=== PATIENT | female | born 1950 | race Hispanic/Latino ===

== ENCOUNTER 2023-08-19 14:40 | Inpatient (IN) | payer MEDICARE ==
[~2023-08-19] VITALS: Ht 170.2 cm; Wt 60.7 kg
[2023-08-19 15:29] LABS: BASOPHILS # (AUTO) 0.04 K/uL (0.00-0.20); BASOPHILS % (AUTO) 0.5 % (0.0-5.0); EOSINOPHILS # (AUTO) 0.11 K/uL (0.00-0.70); EOSINOPHILS % (AUTO) 1.3 % (0.0-8.0); HEMATOCRIT 36.5 % (36-48); IMMATURE GRANULOCYTE ABSOLUTE 0.04 K/uL (0-1); LYMPHOCYTES # (AUTO) 1.3 K/uL (1.0-4.8); LYMPHOCYTES % (AUTO) 15.3 % (21.0-51.0); MEAN CORPUSCULAR HEMOGLOBIN 30.1 pg (27.0-33.0); MEAN CORPUSCULAR HGB CONC 32.6 g/dL (32.0-36.0); MEAN CORPUSCULAR VOLUME 92.4 fL (79-99); MONOCYTES # (AUTO) 0.4 K/uL (0.1-1.0); MONOCYTES % (AUTO) 4.8 % (3.0-13.0); NEUTROPHILS # (AUTO) 6.6 K/uL (1.8-7.7); NEUTROPHILS % (AUTO) 77.6 % (40.0-77.0); PLATELET COUNT (AUTO) 293 K/uL (130-400); RED BLOOD CELL COUNT(AUTO) 3.95 MIL/uL (4.00-5.50); RED CELL DISTRIBUTION WIDTH 12.9 % (11.0-15.5); WHITE BLOOD COUNT (AUTO) 8.5 K/uL (4.8-10.8)
[2023-08-19 15:48] LABS: CREATININE 1.1 mg/dL (0.5-1.5); POTASSIUM 3.5 mmol/L (3.5-5.1)
[2023-08-19 15:53] LABS: ALBUMIN 3.2 g/dL (3.5-5.0); BILIRUBIN,TOTAL 0.3 mg/dL (0.2-1.0); MAGNESIUM 1.8 mg/dL (1.80-2.40); TOTAL PROTEIN, SERUM 7.5 g/dL (6.0-8.3)
[2023-08-19 15:58] LABS: B-TYPE NATRIURETIC PEPTIDE 183 pg/mL (0-100)
[2023-08-19] MEDS ORDERED: ONDANSETRON 4MG INJ IVP PRN (17:00)
[2023-08-19] MEDS ORDERED: LACTULOSE 20 GM/30 ML UDCUP PO PRN (17:00)
[2023-08-19] MEDS ORDERED: CLONIDINE HCL 0.1 MG TABLET PO PRN (17:00)
[2023-08-19 17:06] LABS: ABG BASE EXCESS 0.5 mmol/L (-2.0-3.0); ABG HCO3 24.8 mmol/L (21.0-28.0); ABG PCO2 39 mmHg (32-45); ABG PH 7.424 (7.35-7.450); PO2, ARTERIAL BG 79.6 mmHg (83.0-108.0); VENT MODE, BG RA (ROOM AIR)
[2023-08-19] MEDS ORDERED: IOHEXOL 350 MG/ML 100ML INFUS..BTL IV ONE (18:17)
[2023-08-19] MEDS: 0.9%NACL 1000ML 1,000 ML IV SCH (18:41)
[2023-08-19] MEDS: CEFTRIAXONE 2GM VIAL IVPB SCH (18:41)
[2023-08-19] MEDS ORDERED: CLOPIDOGREL 300MG TAB PO ONE (20:00)
[2023-08-19] MEDS: INSULIN HUMULIN R 100 UNIT/ML 3ML SQ SCH (21:00)
[2023-08-19] MEDS: SIMVASTATIN 20 MG TABLET PO SCH (21:00)
[2023-08-19] MEDS ORDERED: ASPIRIN 81MG CHEW TAB PO STA (23:25)
[2023-08-19] MEDS ORDERED: HEPARIN 5,000 UNIT VIAL ONE (23:45)
[2023-08-20] VITALS (12 sets, daily range): BP systolic 124–186; BP diastolic 58–78; PULSE 46–60; RESP 18–20; O2SAT 97–98
[2023-08-20 00:20] LABS: INR 0.94 (0.85-1.15); PROTHROMBIN TIME 10.9 SEC (9.6-11.6)
[2023-08-20 00:21] LABS: PARTIAL THROMBOPLASTIN TIME 25.1 SEC (26.3-35.5)
[2023-08-20] MEDS: HEPARIN 25,000 UNITS/250ML D5W 250 ML IV SCH (00:29)
[2023-08-20 00:35] LABS: ADD UA MICROSCOPIC NO; APPEARANCE,URINE CLEAR (CLEAR); BILIRUBIN,URINE NEGATIVE (NEGATIVE); COLOR,URINE COLORLESS (YELLOW); GLUCOSE, URINE (UA) NEGATIVE (NEGATIVE); KETONES,URINE NEGATIVE (NEGATIVE); LEUKOCYTE ESTERASE ,URINE NEGATIVE Leu/uL (NEGATIVE); NITRATE,URINE NEGATIVE (NEGATIVE); OCCULT BLOOD,URINE NEGATIVE (NEGATIVE); PH,URINE 6.5 (5.0-8.0); PROTEIN,URINE NEGATIVE (NEGATIVE); UROBILINOGEN,URINE 0.2 mg/dL (0.2-1.0)
[2023-08-20] MEDS ORDERED: LEVO5TAB29 PO (01:21)
[2023-08-20] MEDS ORDERED: PRAV40TA3 PO (01:22)
[2023-08-20] MEDS ORDERED: HYDRALAZINE 20MG/ML VIAL IV PRN (01:30)
[2023-08-20 03:23] LABS: INR 0.98 (0.85-1.15); PROTHROMBIN TIME 11.4 SEC (9.6-11.6)
[2023-08-20 03:47] LABS: PARTIAL THROMBOPLASTIN TIME > 139.0 SEC (26.3-35.5)
[2023-08-20 04:58] LABS: CREATININE 0.9 mg/dL (0.5-1.5); MAGNESIUM 1.7 mg/dL (1.80-2.40); POTASSIUM 3.4 mmol/L (3.5-5.1)
[2023-08-20 05:56] LABS: BASOPHILS # (AUTO) 0.04 K/uL (0.00-0.20); BASOPHILS % (AUTO) 0.6 % (0.0-5.0); EOSINOPHILS # (AUTO) 0.11 K/uL (0.00-0.70); EOSINOPHILS % (AUTO) 1.6 % (0.0-8.0); HEMATOCRIT 33.9 % (36-48); IMMATURE GRANULOCYTE ABSOLUTE 0.02 K/uL (0-1); LYMPHOCYTES # (AUTO) 2.7 K/uL (1.0-4.8); LYMPHOCYTES % (AUTO) 38.1 % (21.0-51.0); MEAN CORPUSCULAR HEMOGLOBIN 30.7 pg (27.0-33.0); MEAN CORPUSCULAR VOLUME 92.9 fL (79-99); MONOCYTES # (AUTO) 0.6 K/uL (0.1-1.0); MONOCYTES % (AUTO) 8.4 % (3.0-13.0); NEUTROPHILS # (AUTO) 3.6 K/uL (1.8-7.7); PLATELET COUNT (AUTO) 295 K/uL (130-400); RED BLOOD CELL COUNT(AUTO) 3.65 MIL/uL (4.00-5.50); RED CELL DISTRIBUTION WIDTH 13.2 % (11.0-15.5)
[2023-08-20] MEDS ORDERED: POTASSIUM CHLORIDE 10% ELIXIR 20 MEQ/15 ML UDCUP PO PRN (06:00)
[2023-08-20] MEDS ORDERED: KCL 20 MEQ ERTAB PO PRN (06:00)
[2023-08-20] MEDS ORDERED: POTASSIUM CHLORIDE 20MEQ/100ML 100 ML IV PRN (06:00)
[2023-08-20] MEDS ORDERED: MAGNESIUM 2GM PREMIX 50ML 50 ML IV PRN (06:00)
[2023-08-20 06:18] LABS: B-TYPE NATRIURETIC PEPTIDE 223 pg/mL (0-100)
[2023-08-20] MEDS: INSULIN HUMULIN R 100 UNIT/ML 3ML SQ SCH ×4 (06:19→21:00)
[2023-08-20] MEDS ORDERED: REGADENOSON 0.4 MG/5 ML PF SYG IVP ONE (06:30)
[2023-08-20] MEDS ORDERED: LOSARTAN 25 MG TABLET PO SCH (09:00)
[2023-08-20] MEDS ORDERED: ENOXAPARIN SODIUM 40 MG/0.4 ML SYRINGE SQ SCH (09:00)
[2023-08-20 10:09] LABS: INR 0.96 (0.85-1.15); PROTHROMBIN TIME 11.2 SEC (9.6-11.6)
[2023-08-20 10:30] LABS: PARTIAL THROMBOPLASTIN TIME > 139.0 SEC (26.3-35.5)
[2023-08-20] MEDS: PANTOPRAZOLE 40 MG TAB DR PO SCH (10:41)
[2023-08-20] MEDS: ASPIRIN 81MG CHEW TAB PO SCH (10:41)
[2023-08-20] MEDS: CLOPIDOGREL 75MG TAB PO SCH (10:41)
[2023-08-20] MEDS: 0.9%NACL 1000ML 1,000 ML IV SCH ×2 (10:45→19:40)
[2023-08-20] MEDS: CEFTRIAXONE 2GM VIAL IVPB SCH (17:32)
[2023-08-20] MEDS: SIMVASTATIN 20 MG TABLET PO SCH (21:09)
[2023-08-21] VITALS (12 sets, daily range): BP systolic 107–154; BP diastolic 51–79; PULSE 50–89; RESP 18; O2SAT 98
[2023-08-21 01:14] LABS: INR 0.97 (0.85-1.15); PROTHROMBIN TIME 11.3 SEC (9.6-11.6)
[2023-08-21 01:49] LABS: PARTIAL THROMBOPLASTIN TIME 103.2 SEC (26.3-35.5)
[2023-08-21] MEDS: INSULIN HUMULIN R 100 UNIT/ML 3ML SQ SCH ×4 (05:55→21:00)
[2023-08-21 07:19] LABS: INR 0.96 (0.85-1.15); PROTHROMBIN TIME 11.2 SEC (9.6-11.6)
[2023-08-21 07:21] LABS: PARTIAL THROMBOPLASTIN TIME 75.2 SEC (26.3-35.5)
[2023-08-21 07:29] LABS: BASOPHILS # (AUTO) 0.05 K/uL (0.00-0.20); EOSINOPHILS # (AUTO) 0.11 K/uL (0.00-0.70); EOSINOPHILS % (AUTO) 2.2 % (0.0-8.0); HEMATOCRIT 33.1 % (36-48); IMMATURE GRANULOCYTE ABSOLUTE 0.03 K/uL (0-1); LYMPHOCYTES # (AUTO) 2.3 K/uL (1.0-4.8); LYMPHOCYTES % (AUTO) 46.2 % (21.0-51.0); MEAN CORPUSCULAR HEMOGLOBIN 30.4 pg (27.0-33.0); MEAN CORPUSCULAR HGB CONC 32.9 g/dL (32.0-36.0); MEAN CORPUSCULAR VOLUME 92.5 fL (79-99); MONOCYTES # (AUTO) 0.4 K/uL (0.1-1.0); MONOCYTES % (AUTO) 7.7 % (3.0-13.0); NEUTROPHILS # (AUTO) 2.1 K/uL (1.8-7.7); NEUTROPHILS % (AUTO) 42.3 % (40.0-77.0); PLATELET COUNT (AUTO) 252 K/uL (130-400); RED BLOOD CELL COUNT(AUTO) 3.58 MIL/uL (4.00-5.50); RED CELL DISTRIBUTION WIDTH 13.4 % (11.0-15.5); WHITE BLOOD COUNT (AUTO) 4.9 K/uL (4.8-10.8)
[2023-08-21 07:46] LABS: CREATININE 0.8 mg/dL (0.5-1.5); POTASSIUM 3.7 mmol/L (3.5-5.1)
[2023-08-21 07:47] LABS: B-TYPE NATRIURETIC PEPTIDE 135 pg/mL (0-100)
[2023-08-21] MEDS: PANTOPRAZOLE 40 MG TAB DR PO SCH (09:30)
[2023-08-21] MEDS: ASPIRIN 81MG CHEW TAB PO SCH (09:30)
[2023-08-21] MEDS: LOSARTAN 25 MG TABLET PO SCH (09:30)
[2023-08-21] MEDS: 0.9%NACL 1000ML 1,000 ML IV SCH ×2 (09:31→16:09)
[2023-08-21] MEDS: CLOPIDOGREL 75MG TAB PO SCH (09:31)
[2023-08-21] MEDS ORDERED: IOHEXOL-350 50ML VIAL IV ONE (14:30)
[2023-08-21] MEDS ORDERED: LIDOCAINE HCL 400MG/20ML VIAL ONE (14:30)
[2023-08-21] MEDS ORDERED: BIVALIRUDIN 250 MG/VIAL IV ONE (14:30)
[2023-08-21] MEDS ORDERED: HEPARIN 10,000 UNIT/10ML (1,000 UNIT/ML) VIAL ONE (14:30)
[2023-08-21] MEDS ORDERED: MIDAZOLAM HCL 1 MG/ML 2ML VIAL ONE (14:30)
[2023-08-21] MEDS ORDERED: IOHEXOL 350 MG/ML 100ML INFUS..BTL IV ONE (14:30)
[2023-08-21] MEDS ORDERED: FENTANYL CITRATE PF 50 MCG/1 ML 2ML VIAL ONE (14:30)
[2023-08-21] MEDS ORDERED: HYDRALAZINE 20MG/ML VIAL ONE ×2 (15:39→15:59)
[2023-08-21] MEDS ORDERED: LABETALOL 20MG SYG IV ONE (15:57)
[2023-08-21] MEDS ORDERED: 0.9%NACL 1000ML 1,000 ML IV SCH (16:30)
[2023-08-21] MEDS ORDERED: PHARMACY COMMUNICATION MISC SCH ×2 (16:30→18:00)
[2023-08-21] MEDS: CEFTRIAXONE 2GM VIAL IVPB SCH (18:17)
[2023-08-21] MEDS: SIMVASTATIN 20 MG TABLET PO SCH (21:25)
[2023-08-22] VITALS (8 sets, daily range): BP systolic 127–167; BP diastolic 65–77; PULSE 68–79; RESP 16–20; O2SAT 98
[2023-08-22] MEDS ORDERED: HEPARIN 5,000 UNIT VIAL ONE (01:21)
[2023-08-22] MEDS: HEPARIN 25,000 UNITS/250ML D5W 250 ML IV SCH (01:54)
[2023-08-22] MEDS ORDERED: HEPARIN 5,000 UNIT VIAL SQ PRN (02:30)
[2023-08-22 03:59] LABS: HEMATOCRIT 31.5 % (36-48); MEAN CORPUSCULAR HEMOGLOBIN 30.3 pg (27.0-33.0); MEAN CORPUSCULAR HGB CONC 33.3 g/dL (32.0-36.0); RED BLOOD CELL COUNT(AUTO) 3.46 MIL/uL (4.00-5.50); RED CELL DISTRIBUTION WIDTH 13.5 % (11.0-15.5); WHITE BLOOD COUNT (AUTO) 7.4 K/uL (4.8-10.8)
[2023-08-22 04:07] LABS: CREATININE 0.9 mg/dL (0.5-1.5); MAGNESIUM 1.4 mg/dL (1.80-2.40); POTASSIUM 3.3 mmol/L (3.5-5.1)
[2023-08-22 06:28] LABS: BASOPHILS # (AUTO) 0.02 K/uL (0.00-0.20); BASOPHILS % (AUTO) 0.3 % (0.0-5.0); HEMATOCRIT 31.8 % (36-48); IMMATURE GRANULOCYTE ABSOLUTE 0.04 K/uL (0-1); LYMPHOCYTES # (AUTO) 1.4 K/uL (1.0-4.8); LYMPHOCYTES % (AUTO) 17.7 % (21.0-51.0); MEAN CORPUSCULAR HEMOGLOBIN 30.5 pg (27.0-33.0); MEAN CORPUSCULAR HGB CONC 34.3 g/dL (32.0-36.0); MEAN CORPUSCULAR VOLUME 89.1 fL (79-99); MONOCYTES # (AUTO) 0.6 K/uL (0.1-1.0); MONOCYTES % (AUTO) 7.2 % (3.0-13.0); NEUTROPHILS # (AUTO) 5.7 K/uL (1.8-7.7); NEUTROPHILS % (AUTO) 74.3 % (40.0-77.0); PLATELET COUNT (AUTO) 243 K/uL (130-400); RED BLOOD CELL COUNT(AUTO) 3.57 MIL/uL (4.00-5.50); RED CELL DISTRIBUTION WIDTH 13.6 % (11.0-15.5); WHITE BLOOD COUNT (AUTO) 7.7 K/uL (4.8-10.8)
[2023-08-22 06:39] LABS: CREATININE 0.9 mg/dL (0.5-1.5); POTASSIUM 3.2 mmol/L (3.5-5.1)
[2023-08-22] MEDS: INSULIN HUMULIN R 100 UNIT/ML 3ML SQ SCH ×4 (06:52→21:00)
[2023-08-22] MEDS: PANTOPRAZOLE 40 MG TAB DR PO SCH (08:23)
[2023-08-22] MEDS: ASPIRIN 81MG CHEW TAB PO SCH (08:24)
[2023-08-22] MEDS: LOSARTAN 25 MG TABLET PO SCH (08:24)
[2023-08-22 10:14] LABS: % IRON SATURATION 30.4 % (22-44)
[2023-08-22] MEDS: CEFTRIAXONE 2GM VIAL IVPB SCH (16:50)
[2023-08-22] MEDS: SIMVASTATIN 20 MG TABLET PO SCH (21:20)
[2023-08-23] VITALS (9 sets, daily range): BP systolic 132–169; BP diastolic 66–87; PULSE 61–91; RESP 18–20; O2SAT 97–98
[2023-08-23] MEDS: INSULIN HUMULIN R 100 UNIT/ML 3ML SQ SCH ×4 (06:54→20:10)
[2023-08-23] MEDS ORDERED: PHARMACY COMMUNICATION MISC SCH (08:00)
[2023-08-23] MEDS ORDERED: HEPARIN 25000 UNITS/D5W 250ML IV SCH (08:00)
[2023-08-23] MEDS: LOSARTAN 25 MG TABLET PO SCH (08:45)
[2023-08-23] MEDS: ASPIRIN 81MG CHEW TAB PO SCH (08:45)
[2023-08-23] MEDS: PANTOPRAZOLE 40 MG TAB DR PO SCH (08:45)
[2023-08-23] MEDS ORDERED: HEPARIN 10,000 UNIT/10ML (1,000 UNIT/ML) VIAL IV PRN (09:30)
[2023-08-23] MEDS: CEFAZOLIN SODIUM 1 GM VIAL IVPB SCH (10:30)
[2023-08-23] MEDS: CEFTRIAXONE 2GM VIAL IVPB SCH (17:58)
[2023-08-23] MEDS: SIMVASTATIN 20 MG TABLET PO SCH (20:24)
[2023-08-23] MEDS: METOPROLOL TARTRATE 25 MG TAB PO SCH (20:25)
[2023-08-24] VITALS (38 sets, daily range): BP systolic 93–206; BP diastolic 33–96; PULSE 60–109; RESP 4–21; TEMP 97.2–98.6; O2SAT 98–100
[2023-08-24 04:00] LABS: HEMATOCRIT 36.1 % (36-48); MEAN CORPUSCULAR HEMOGLOBIN 30.3 pg (27.0-33.0); MEAN CORPUSCULAR HGB CONC 32.7 g/dL (32.0-36.0); MEAN CORPUSCULAR VOLUME 92.8 fL (79-99); RED BLOOD CELL COUNT(AUTO) 3.89 MIL/uL (4.00-5.50); RED CELL DISTRIBUTION WIDTH 13.8 % (11.0-15.5); WHITE BLOOD COUNT (AUTO) 8.4 K/uL (4.8-10.8)
[2023-08-24 04:09] LABS: POTASSIUM 3.7 mmol/L (3.5-5.1)
[2023-08-24 04:12] LABS: INR 0.96 (0.85-1.15); PROTHROMBIN TIME 11.2 SEC (9.6-11.6)
[2023-08-24 04:13] LABS: ALBUMIN 3.2 g/dL (3.5-5.0); BILIRUBIN,TOTAL 0.4 mg/dL (0.2-1.0); TOTAL PROTEIN, SERUM 7.6 g/dL (6.0-8.3)
[2023-08-24 04:14] LABS: PARTIAL THROMBOPLASTIN TIME 68.6 SEC (26.3-35.5)
[2023-08-24 04:24] LABS: HEMOGLOBIN A1C 6.8 % (4.0-6.0)
[2023-08-24] MEDS: INSULIN HUMULIN R 100 UNIT/ML 3ML SQ SCH ×2 (05:25→11:30)
[2023-08-24] MEDS: ASPIRIN 81MG CHEW TAB PO SCH (09:00)
[2023-08-24] MEDS ORDERED: AMINOCAPROIC ACID 5,000MG VIAL 15,000 MG in 0.9% NACL 500ML IV.SOLN 420 ML IV PRN (09:30)
[2023-08-24] MEDS ORDERED: EPINEPHRINE PF 1MG (1:1,000) 10 MG in 0.9% NACL 250ML 240 ML IV PRN ×2 (09:30→13:30)
[2023-08-24] MEDS ORDERED: NOREPINEPHRINE BITARTRATE 8 MG in DEXTROSE 5%-WATER 250 ML IV PRN ×2 (09:30→13:30)
[2023-08-24] MEDS: PANTOPRAZOLE 40 MG TAB DR PO SCH (09:59)
[2023-08-24] MEDS: METOPROLOL TARTRATE 25 MG TAB PO SCH (10:00)
[2023-08-24] MEDS: CEFAZOLIN SODIUM 1 GM VIAL IVPB SCH ×2 (10:30→12:25)
[2023-08-24] MEDS ORDERED: CEFAZOLIN SODIUM 1 GM VIAL ONE (11:04)
[2023-08-24] MEDS ORDERED: PAPAVERINE HCL 30 MG/ML 2ML VIAL ONE (11:05)
[2023-08-24] MEDS ORDERED: LIDOCAINE 2G/250ML 250 ML IV ONE (11:31)
[2023-08-24] MEDS ORDERED: CEFAZOLIN SODIUM 2 GM VIAL ONE (11:52)
[2023-08-24] MEDS ORDERED: NITROGLYCERIN 50MG/D5W 250ML 1 BOT ONE (12:02)
[2023-08-24] MEDS ORDERED: SODIUM BICARB 50MEQ 50ML VIAL 150 ML ONE (12:23)
[2023-08-24] MEDS ORDERED: HEPARIN 10,000 UNIT/10ML (1,000 UNIT/ML) VIAL ONE ×2 (12:23→17:24)
[2023-08-24] MEDS ORDERED: EPINEPHRINE PF 1MG (1:1,000) 1 MG/ML AMP ONE (12:23)
[2023-08-24] MEDS ORDERED: ESMOLOL HCL 10 MG/ML 10 ML VIAL ONE (12:23)
[2023-08-24] MEDS ORDERED: PROTAMINE SULFATE 10 MG/ML 25ML VIAL IV ONE (12:23)
[2023-08-24] MEDS ORDERED: LIDOCAINE PF 100MG/5ML (2%) SYRINGE 5ML ONE ×2 (12:23→13:37)
[2023-08-24] MEDS ORDERED: NOREPINEPHRINE BITARTRATE 1 MG/1 ML ML IV ONE (12:23)
[2023-08-24] MEDS ORDERED: AMINOCAPROIC ACID 5,000MG VIAL ONE (12:23)
[2023-08-24] MEDS ORDERED: FENTANYL CITRATE PF 50 MCG/1 ML 20ML VIAL IJ ONE (12:24)
[2023-08-24] MEDS ORDERED: PROPOFOL 10 MG/ML 20ML VIAL IV ONE (12:24)
[2023-08-24] MEDS ORDERED: MIDAZOLAM HCL 1 MG/ML 2ML VIAL ONE (12:24)
[2023-08-24] MEDS ORDERED: ROCURONIUM 10MG/1ML SYR 10 MG/ML ML ONE (12:24)
[2023-08-24] MEDS ORDERED: ETOMIDATE 20MG VIAL ONE (12:25)
[2023-08-24 12:56] LABS: ABG BASE EXCESS -2.9 mmol/L (-2.0-3.0); ABG HCO3 20.2 mmol/L (21.0-28.0); ABG OXYGEN SATURATION 99.3 % (95.0-99.0); ABG PCO2 30 mmHg (32-45); ABG PH 7.447 (7.35-7.450); CARBON MONOXIDE 0.2; DEVICE COMMENT 1; HHb 0.7; PO2, ARTERIAL BG 466.5 mmHg (83.0-108.0)
[2023-08-24] MEDS ORDERED: AMIODARONE 150MG VIAL ONE (13:29)
[2023-08-24] MEDS ORDERED: DEXTROSE 50%-WATER 50 ML DISP.SYRIN IV PRN (13:30)
[2023-08-24] MEDS ORDERED: POTASSIUM PHOS 15 mMOL+NS250ML 250 ML IV PRN (13:30)
[2023-08-24] MEDS ORDERED: 0.9%NACL 1000ML 1,000 ML IV SCH (13:30)
[2023-08-24] MEDS ORDERED: PROPOFOL 1000 MG/100 ML 100 ML IV PRN (13:30)
[2023-08-24] MEDS ORDERED: ALBUMIN (HUMAN) 5% 250 ML IV PRN (13:30)
[2023-08-24] MEDS ORDERED: ACETAMINOPHEN 650 MG SUPPOSITORY RC PRN (13:30)
[2023-08-24] MEDS ORDERED: AMINOCAPROIC ACID 5,000MG VIAL 15,000 MG in 0.9% NACL 250ML 250 ML IV SCH (13:30)
[2023-08-24] MEDS ORDERED: NITROGLYCERIN 50MG/D5W 250ML 250 BOT IV SCH (13:30)
[2023-08-24] MEDS ORDERED: GLUCAGON 1MG KIT 1 MG ML IM PRN (13:30)
[2023-08-24] MEDS ORDERED: 0.9%NACL 10ML VIAL IVP PRN (13:30)
[2023-08-24] MEDS ORDERED: MAGNESIUM HYDROXIDE 30 ML/UDCUP PO PRN (13:30)
[2023-08-24] MEDS ORDERED: SODIUM BICARB 50MEQ 50ML VIAL IV PRN (13:30)
[2023-08-24] MEDS ORDERED: ACETAMINOPHEN 325 MG TAB PO PRN ×2 (13:30)
[2023-08-24] MEDS ORDERED: INSULIN REGULAR, HUMAN 3ML 100 UNIT in 0.9%NACL 100ML 99 ML IV SCH ×2 (13:30)
[2023-08-24] MEDS ORDERED: ONDANSETRON 4MG INJ IV PRN (13:30)
[2023-08-24] MEDS ORDERED: MORPHINE 2 MG SYG IV PRN ×2 (13:30)
[2023-08-24] MEDS ORDERED: 0.9% NACL 500ML IV.SOLN 500 ML IV SCH (13:30)
[2023-08-24] MEDS ORDERED: VASOPRESSIN 20 UNITS/ML 1ML VIAL ONE (13:33)
[2023-08-24] MEDS ORDERED: METOPROLOL TARTRATE 1 MG/ML 5ML VIAL IV ONE (13:38)
[2023-08-24 13:47] LABS: ABG BASE EXCESS 3.4 mmol/L (-2.0-3.0); ABG HCO3 26.6 mmol/L (21.0-28.0); ABG OXYGEN SATURATION 99.4 % (95.0-99.0); ABG PCO2 35 mmHg (32-45); ABG PH 7.496 (7.35-7.450); CARBON MONOXIDE 0.2; DEVICE COMMENT 2; HHb 0.6; PO2, ARTERIAL BG > 500.0 mmHg (83.0-108.0)
[2023-08-24] MEDS ORDERED: POTASSIUM CHLORIDE 20MEQ/100ML 300 ML IV ONE (13:51)
[2023-08-24] MEDS ORDERED: ATROPINE 0.4MG VIAL IJ ONE (13:57)
[2023-08-24 14:28] LABS: ABG BASE EXCESS -0.3 mmol/L (-2.0-3.0); ABG HCO3 21.4 mmol/L (21.0-28.0); ABG OXYGEN SATURATION 99.2 % (95.0-99.0); ABG PCO2 25 mmHg (32-45); ABG PH 7.554 (7.35-7.450); CARBON MONOXIDE 0.2; DEVICE COMMENT 3; HHb 0.8; PO2, ARTERIAL BG > 500.0 mmHg (83.0-108.0)
[2023-08-24] MEDS ORDERED: ALBUMIN (HUMAN) 5% 500 ML IV ONE (14:37)
[2023-08-24 15:12] LABS: ABG BASE EXCESS -5.6 mmol/L (-2.0-3.0); ABG HCO3 18.3 mmol/L (21.0-28.0); ABG OXYGEN SATURATION 99.3 % (95.0-99.0); ABG PCO2 29 mmHg (32-45); CARBON MONOXIDE 0.3; DEVICE COMMENT 4; HHb 0.7; PO2, ARTERIAL BG > 500.0 mmHg (83.0-108.0)
[2023-08-24 15:57] LABS: ABG BASE EXCESS 2.4 mmol/L (-2.0-3.0); ABG OXYGEN SATURATION 99.2 % (95.0-99.0); ABG PCO2 30 mmHg (32-45); ABG PH 7.542 (7.35-7.450); CARBON MONOXIDE 0.9; HHb 0.8; PO2, ARTERIAL BG 261.9 mmHg (83.0-108.0); VENT MODE, BG SIMV,PS10 (ROOM AIR)
[2023-08-24] MEDS ORDERED: ASPIRIN 81MG CHEW TAB NG ONE (16:00)
[2023-08-24 16:08] LABS: MEAN CORPUSCULAR HEMOGLOBIN 31.4 pg (27.0-33.0); MEAN CORPUSCULAR HGB CONC 33.7 g/dL (32.0-36.0); MEAN CORPUSCULAR VOLUME 93.1 fL (79-99); RED BLOOD CELL COUNT(AUTO) 2.04 MIL/uL (4.00-5.50); RED CELL DISTRIBUTION WIDTH 13.7 % (11.0-15.5); WHITE BLOOD COUNT (AUTO) 10.4 K/uL (4.8-10.8)
[2023-08-24 16:29] LABS: CREATININE 0.8 mg/dL (0.5-1.5); MAGNESIUM 1.2 mg/dL (1.80-2.40); PHOSPHORUS 3.9 mg/dL (2.5-4.9); POTASSIUM 3.5 mmol/L (3.5-5.1)
[2023-08-24 16:30] LABS: INR 1.35 (0.85-1.15); PROTHROMBIN TIME 15.4 SEC (9.6-11.6)
[2023-08-24 16:31] LABS: PARTIAL THROMBOPLASTIN TIME 30.2 SEC (26.3-35.5)
[2023-08-24] MEDS: MAGNESIUM 2GM PREMIX 50ML 50 ML IV PRN (16:47)
[2023-08-24] MEDS: POTASSIUM CHLORIDE 20MEQ/100ML 100 ML IV PRN ×5 (16:47→22:32)
[2023-08-24 16:58] LABS: ABG BASE EXCESS -0.9 mmol/L (-2.0-3.0); ABG HCO3 20.9 mmol/L (21.0-28.0); ABG OXYGEN SATURATION 98.7 % (95.0-99.0); ABG PCO2 26 mmHg (32-45); ABG PH 7.531 (7.35-7.450); CARBON MONOXIDE 0.3; HHb 1.3; VENT MODE, BG SIMV,PS10 (ROOM AIR)
[2023-08-24] MEDS: CEFTRIAXONE 2GM VIAL IVPB SCH (17:20)
[2023-08-24 18:23] LABS: ABG OXYGEN SATURATION 98.6 % (95.0-99.0); ABG PCO2 27 mmHg (32-45); ABG PH 7.543 (7.35-7.450); CARBON MONOXIDE 0; HHb 1.4; VENT MODE, BG SIMV-PS 10 (ROOM AIR)
[2023-08-24 19:37] LABS: ABG BASE EXCESS -1.5 mmol/L (-2.0-3.0); ABG HCO3 22.6 mmol/L (21.0-28.0); ABG OXYGEN SATURATION 98.3 % (95.0-99.0); ABG PCO2 35 mmHg (32-45); ABG PH 7.423 (7.35-7.450); CARBON MONOXIDE 0.3; HHb 1.7; PO2, ARTERIAL BG 156.3 mmHg (83.0-108.0); VENT MODE, BG SIMV-VC PS 10 (ROOM AIR)
[2023-08-24] MEDS: CEFAZOLIN SODIUM 2 GM VIAL IVPB SCH (20:08)
[2023-08-24 21:01] LABS: ABG BASE EXCESS 3.3 mmol/L (-2.0-3.0); ABG HCO3 26.8 mmol/L (21.0-28.0); ABG PCO2 36 mmHg (32-45); ABG PH 7.488 (7.35-7.450); CARBON MONOXIDE 0.3; VENT MODE, BG SIMV PS 10 (ROOM AIR)
[2023-08-24] MEDS: DOCUSATE SODIUM 100 MG CAP PO SCH (21:13)
[2023-08-24] MEDS: FAMOTIDINE 20MG VIAL IV SCH (21:14)
[2023-08-24] MEDS: CALCIUM GLUC 1GM 1 GM in 0.9%NACL 50ML 50 ML IV PRN ×2 (21:14→22:32)
[2023-08-24] MEDS: SIMVASTATIN 20 MG TABLET PO SCH (21:14)
[2023-08-24 22:23] LABS: ABG BASE EXCESS 4.7 mmol/L (-2.0-3.0); ABG HCO3 28.3 mmol/L (21.0-28.0); ABG OXYGEN SATURATION 98.2 % (95.0-99.0); ABG PCO2 38 mmHg (32-45); ABG PH 7.491 (7.35-7.450); CARBON MONOXIDE 0.1; HHb 1.8; PO2, ARTERIAL BG 140.3 mmHg (83.0-108.0)
[2023-08-24 23:26] LABS: ABG BASE EXCESS 4.6 mmol/L (-2.0-3.0); ABG HCO3 29.2 mmol/L (21.0-28.0); ABG OXYGEN SATURATION 98.2 % (95.0-99.0); ABG PCO2 44 mmHg (32-45); CARBON MONOXIDE 0.1; CPAP, BG 10 cm H2O; HHb 1.8; PO2, ARTERIAL BG 137.7 mmHg (83.0-108.0); VENT MODE, BG CPAP PS10 (ROOM AIR)
[2023-08-25] VITALS (93 sets, daily range): BP systolic 76–206; BP diastolic 36–69; PULSE 83–114; RESP 8–30; TEMP 98.1–99; O2SAT 97–100
[2023-08-25 00:20] LABS: ABG BASE EXCESS 3.1 mmol/L (-2.0-3.0); ABG HCO3 27.3 mmol/L (21.0-28.0); ABG OXYGEN SATURATION 98.1 % (95.0-99.0); ABG PCO2 40 mmHg (32-45); ABG PH 7.448 (7.35-7.450); CARBON MONOXIDE 0.3; HHb 1.9; PO2, ARTERIAL BG 137.4 mmHg (83.0-108.0)
[2023-08-25] MEDS: POTASSIUM CHLORIDE 20MEQ/100ML 100 ML IV PRN (00:23)
[2023-08-25 01:31] LABS: ABG BASE EXCESS 3.2 mmol/L (-2.0-3.0); ABG HCO3 26.9 mmol/L (21.0-28.0); ABG OXYGEN SATURATION 98.3 % (95.0-99.0); ABG PCO2 38 mmHg (32-45); ABG PH 7.473 (7.35-7.450); CARBON MONOXIDE 0.8; HHb 1.7; PO2, ARTERIAL BG 139.8 mmHg (83.0-108.0)
[2023-08-25 02:27] LABS: ABG HCO3 25.2 mmol/L (21.0-28.0); ABG OXYGEN SATURATION 98.3 % (95.0-99.0); ABG PCO2 38 mmHg (32-45); ABG PH 7.437 (7.35-7.450); CARBON MONOXIDE 0.6; HHb 1.7
[2023-08-25 04:17] LABS: ABG BASE EXCESS 0.2 mmol/L (-2.0-3.0); ABG HCO3 24.9 mmol/L (21.0-28.0); ABG OXYGEN SATURATION 98.4 % (95.0-99.0); ABG PCO2 40 mmHg (32-45); ABG PH 7.409 (7.35-7.450); CARBON MONOXIDE 0.4; HHb 1.6; PO2, ARTERIAL BG 151.9 mmHg (83.0-108.0); VENT MODE, BG CAFM (ROOM AIR)
[2023-08-25 05:01] LABS: HEMATOCRIT 23.7 % (36-48); MEAN CORPUSCULAR HEMOGLOBIN 30.3 pg (27.0-33.0); MEAN CORPUSCULAR HGB CONC 32.5 g/dL (32.0-36.0); MEAN CORPUSCULAR VOLUME 93.3 fL (79-99); RED BLOOD CELL COUNT(AUTO) 2.54 MIL/uL (4.00-5.50); RED CELL DISTRIBUTION WIDTH 14.8 % (11.0-15.5); WHITE BLOOD COUNT (AUTO) 8.1 K/uL (4.8-10.8)
[2023-08-25] MEDS: CEFAZOLIN SODIUM 2 GM VIAL IVPB SCH ×2 (05:06→15:04)
[2023-08-25 05:14] LABS: INR 1.07 (0.85-1.15); PROTHROMBIN TIME 12.4 SEC (9.6-11.6)
[2023-08-25 05:15] LABS: PARTIAL THROMBOPLASTIN TIME 26.5 SEC (26.3-35.5)
[2023-08-25 05:24] LABS: ALBUMIN 2.6 g/dL (3.5-5.0); MAGNESIUM 1.5 mg/dL (1.80-2.40); PHOSPHORUS 3.1 mg/dL (2.5-4.9); POTASSIUM 4.3 mmol/L (3.5-5.1); TOTAL PROTEIN, SERUM 5.3 g/dL (6.0-8.3)
[2023-08-25] MEDS: MAGNESIUM 2GM PREMIX 50ML 50 ML IV PRN (05:46)
[2023-08-25] MEDS: TRAMADOL HCL 50 MG TABLET PO PRN ×2 (06:24→15:01)
[2023-08-25] MEDS: ASPIRIN 81MG CHEW TAB PO SCH (07:47)
[2023-08-25] MEDS: DOCUSATE SODIUM 100 MG CAP PO SCH ×2 (07:47→19:46)
[2023-08-25] MEDS: CEFTRIAXONE 2GM VIAL IVPB SCH (17:36)
[2023-08-25] MEDS: FAMOTIDINE 20MG VIAL IV SCH (19:46)
[2023-08-25] MEDS: SIMVASTATIN 20 MG TABLET PO SCH (19:46)
[2023-08-26] VITALS (43 sets, daily range): BP systolic 103–145; BP diastolic 48–73; PULSE 75–110; RESP 10–27; O2SAT 96–100
[2023-08-26 04:06] LABS: BASOPHILS # (AUTO) 0.02 K/uL (0.00-0.20); BASOPHILS % (AUTO) 0.2 % (0.0-5.0); HEMATOCRIT 23.1 % (36-48); IMMATURE GRANULOCYTE ABSOLUTE 0.08 K/uL (0-1); LYMPHOCYTES # (AUTO) 1.4 K/uL (1.0-4.8); LYMPHOCYTES % (AUTO) 12.3 % (21.0-51.0); MEAN CORPUSCULAR HEMOGLOBIN 30.5 pg (27.0-33.0); MEAN CORPUSCULAR HGB CONC 31.6 g/dL (32.0-36.0); MEAN CORPUSCULAR VOLUME 96.7 fL (79-99); MONOCYTES # (AUTO) 1.2 K/uL (0.1-1.0); MONOCYTES % (AUTO) 10.2 % (3.0-13.0); NEUTROPHILS # (AUTO) 8.9 K/uL (1.8-7.7); NEUTROPHILS % (AUTO) 76.6 % (40.0-77.0); PLATELET COUNT (AUTO) 180 K/uL (130-400); RED BLOOD CELL COUNT(AUTO) 2.39 MIL/uL (4.00-5.50); WHITE BLOOD COUNT (AUTO) 11.6 K/uL (4.8-10.8)
[2023-08-26 04:25] LABS: ALBUMIN 2.6 g/dL (3.5-5.0); BILIRUBIN,TOTAL 0.5 mg/dL (0.2-1.0); CREATININE 0.9 mg/dL (0.5-1.5); POTASSIUM 4.5 mmol/L (3.5-5.1); TOTAL PROTEIN, SERUM 5.9 g/dL (6.0-8.3)
[2023-08-26] MEDS: MAGNESIUM 2GM PREMIX 50ML 50 ML IV PRN (06:05)
[2023-08-26] MEDS: FUROSEMIDE 20 MG TABLET PO SCH ×2 (09:58→16:57)
[2023-08-26] MEDS: DOCUSATE SODIUM 100 MG CAP PO SCH ×2 (09:58→20:33)
[2023-08-26] MEDS: METOPROLOL TARTRATE 25 MG TAB PO SCH ×2 (09:58→20:33)
[2023-08-26] MEDS: ASPIRIN 81MG CHEW TAB PO SCH (09:58)
[2023-08-26] MEDS: TRAMADOL HCL 50 MG TABLET PO PRN (09:59)
[2023-08-26] MEDS: CEFTRIAXONE 2GM VIAL IVPB SCH (16:57)
[2023-08-26] MEDS: SIMVASTATIN 20 MG TABLET PO SCH (20:33)
[2023-08-26] MEDS: FAMOTIDINE 20MG VIAL IV SCH (20:33)
[2023-08-27] VITALS (14 sets, daily range): BP systolic 100–144; BP diastolic 47–77; PULSE 77–97; RESP 16–20; O2SAT 96
[2023-08-27 04:43] LABS: ALBUMIN 2.2 g/dL (3.5-5.0); BILIRUBIN,TOTAL 0.4 mg/dL (0.2-1.0); CREATININE 0.9 mg/dL (0.5-1.5); POTASSIUM 4.4 mmol/L (3.5-5.1); TOTAL PROTEIN, SERUM 5.6 g/dL (6.0-8.3)
[2023-08-27 05:34] LABS: HEMATOCRIT 21.4 % (36-48); MEAN CORPUSCULAR HEMOGLOBIN 30.4 pg (27.0-33.0); MEAN CORPUSCULAR HGB CONC 32.2 g/dL (32.0-36.0); MEAN CORPUSCULAR VOLUME 94.3 fL (79-99); RED BLOOD CELL COUNT(AUTO) 2.27 MIL/uL (4.00-5.50); RED CELL DISTRIBUTION WIDTH 14.3 % (11.0-15.5); WHITE BLOOD COUNT (AUTO) 11.8 K/uL (4.8-10.8)
[2023-08-27] MEDS: ASPIRIN 81MG CHEW TAB PO SCH (08:23)
[2023-08-27] MEDS: ENOXAPARIN SODIUM 30 MG/0.3 ML SQ SCH (08:24)
[2023-08-27] MEDS: DOCUSATE SODIUM 100 MG CAP PO SCH ×2 (08:24→20:45)
[2023-08-27] MEDS: METOPROLOL TARTRATE 25 MG TAB PO SCH ×2 (08:24→20:45)
[2023-08-27] MEDS: FUROSEMIDE 20 MG TABLET PO SCH ×2 (08:24→17:40)
[2023-08-27] MEDS: GUAIFENESIN 600 MG TABLET.ER PO SCH ×2 (13:34→20:45)
[2023-08-27] MEDS: TRAMADOL HCL 50 MG TABLET PO PRN (17:41)
[2023-08-27] MEDS: CEFTRIAXONE 2GM VIAL IVPB SCH (17:41)
[2023-08-27] MEDS: FAMOTIDINE 20MG VIAL IV SCH (20:44)
[2023-08-27] MEDS: SIMVASTATIN 20 MG TABLET PO SCH (20:45)
[2023-08-28] VITALS (7 sets, daily range): BP systolic 137–166; BP diastolic 72–94; PULSE 81–89; RESP 18–20; O2SAT 96
[2023-08-28 03:36] LABS: HEMATOCRIT 24.4 % (36-48); MEAN CORPUSCULAR HEMOGLOBIN 30.8 pg (27.0-33.0); MEAN CORPUSCULAR HGB CONC 32.8 g/dL (32.0-36.0); MEAN CORPUSCULAR VOLUME 93.8 fL (79-99); NUCLEATED RED BLOOD CELLS 0.5 % (0.0-0.19); RED BLOOD CELL COUNT(AUTO) 2.6 MIL/uL (4.00-5.50); RED CELL DISTRIBUTION WIDTH 13.7 % (11.0-15.5); WHITE BLOOD COUNT (AUTO) 8.1 K/uL (4.8-10.8)
[2023-08-28 03:52] LABS: ALBUMIN 2.1 g/dL (3.5-5.0); BILIRUBIN,TOTAL 0.6 mg/dL (0.2-1.0); CREATININE 0.8 mg/dL (0.5-1.5); MAGNESIUM 1.7 mg/dL (1.80-2.40); POTASSIUM 3.2 mmol/L (3.5-5.1); TOTAL PROTEIN, SERUM 5.3 g/dL (6.0-8.3)
[2023-08-28] MEDS: KCL 20 MEQ ERTAB PO ONE ×2 (05:52→05:56)
[2023-08-28] MEDS ORDERED: POTASSIUM CHLORIDE 10% ELIXIR 20 MEQ/15 ML UDCUP PO PRN (06:00)
[2023-08-28] MEDS: DOCUSATE SODIUM 100 MG CAP PO SCH ×2 (09:00→20:54)
[2023-08-28] MEDS: METOPROLOL TARTRATE 25 MG TAB PO SCH (10:08)
[2023-08-28] MEDS: CLOPIDOGREL 75MG TAB PO SCH (10:08)
[2023-08-28] MEDS: ASPIRIN 81MG CHEW TAB PO SCH (10:08)
[2023-08-28] MEDS: ENOXAPARIN SODIUM 30 MG/0.3 ML SQ SCH (10:09)
[2023-08-28] MEDS: GUAIFENESIN 600 MG TABLET.ER PO SCH ×3 (10:09→20:54)
[2023-08-28] MEDS: MAGNESIUM 2GM PREMIX 50ML 50 ML IV PRN (12:43)
[2023-08-28] MEDS: KCL 20 MEQ ERTAB PO PRN ×2 (13:00→15:10)
[2023-08-28] MEDS: CEFTRIAXONE 2GM VIAL IVPB SCH (17:14)
[2023-08-28] MEDS: SIMVASTATIN 20 MG TABLET PO SCH (20:54)
[2023-08-28] MEDS: FAMOTIDINE 20MG VIAL IV SCH (20:59)
[2023-08-28] MEDS ORDERED: METOPROLOL TARTRATE 25 MG TAB PO SCH (21:00)
[2023-08-29] VITALS (8 sets, daily range): BP systolic 143–168; BP diastolic 72–95; PULSE 87–99; RESP 16–22; O2SAT 94–96
[2023-08-29 04:26] LABS: HEMATOCRIT 28.5 % (36-48); MEAN CORPUSCULAR VOLUME 91.1 fL (79-99); NUCLEATED RED BLOOD CELLS 0.6 % (0.0-0.19); RED BLOOD CELL COUNT(AUTO) 3.13 MIL/uL (4.00-5.50); RED CELL DISTRIBUTION WIDTH 13.8 % (11.0-15.5); WHITE BLOOD COUNT (AUTO) 8.2 K/uL (4.8-10.8)
[2023-08-29 04:44] LABS: CREATININE 0.7 mg/dL (0.5-1.5); MAGNESIUM 1.8 mg/dL (1.80-2.40); POTASSIUM 3.6 mmol/L (3.5-5.1)
[2023-08-29] MEDS: MAGNESIUM 2GM PREMIX 50ML 50 ML IV PRN (05:28)
[2023-08-29] MEDS: KCL 20 MEQ ERTAB PO PRN (05:28)
[2023-08-29] MEDS ORDERED: LOSARTAN 25 MG TABLET PO SCH (09:00)
[2023-08-29] MEDS: DOCUSATE SODIUM 100 MG CAP PO SCH ×2 (09:00→21:00)
[2023-08-29] MEDS: GUAIFENESIN 600 MG TABLET.ER PO SCH ×3 (09:00→21:00)
[2023-08-29] MEDS ORDERED: LOSA25TA41 PO (09:03)
[2023-08-29] MEDS ORDERED: METO25TA3 PO (09:03)
[2023-08-29] MEDS ORDERED: CLOP-31 PO (09:03)
[2023-08-29] MEDS ORDERED: ASPI-1005 PO (09:03)
[2023-08-29] MEDS: CLOPIDOGREL 75MG TAB PO SCH (09:54)
[2023-08-29] MEDS: METOPROLOL SUCCINATE 25 MG TAB.SR.24H PO SCH (09:54)
[2023-08-29] MEDS: ASPIRIN 81MG CHEW TAB PO SCH (09:54)
[2023-08-29] MEDS: CEFTRIAXONE 2GM VIAL IVPB SCH (16:21)
[2023-08-29] MEDS: METOCLOPRAMIDE 5 MG TABLET PO SCH (17:25)
[2023-08-29] MEDS: SIMVASTATIN 20 MG TABLET PO SCH (20:43)
[2023-08-29] MEDS: FAMOTIDINE 20MG VIAL IV SCH (20:44)
[2023-08-30 00:15] VITALS: BP 143/87; PULSE 99; RESP 20
[2023-08-30 03:15] VITALS: BP 143/94; PULSE 99; RESP 18
[2023-08-30 05:42] LABS: HEMATOCRIT 34.3 % (36-48); MEAN CORPUSCULAR HEMOGLOBIN 30.7 pg (27.0-33.0); MEAN CORPUSCULAR HGB CONC 32.1 g/dL (32.0-36.0); MEAN CORPUSCULAR VOLUME 95.8 fL (79-99); NUCLEATED RED BLOOD CELLS 0.6 % (0.0-0.19); RED BLOOD CELL COUNT(AUTO) 3.58 MIL/uL (4.00-5.50); RED CELL DISTRIBUTION WIDTH 14.6 % (11.0-15.5); WHITE BLOOD COUNT (AUTO) 8.9 K/uL (4.8-10.8)
[2023-08-30 05:54] LABS: CREATININE 0.8 mg/dL (0.5-1.5); POTASSIUM 3.4 mmol/L (3.5-5.1)
[2023-08-30 07:10] VITALS: BP 145/79; PULSE 100; RESP 18
[2023-08-30 08:00] VITALS: O2SAT 96
[2023-08-30] MEDS ORDERED: LOSARTAN 25 MG TABLET PO SCH (09:00)
[2023-08-30] MEDS: GUAIFENESIN 600 MG TABLET.ER PO SCH ×2 (09:00→13:36)
[2023-08-30] MEDS: DOCUSATE SODIUM 100 MG CAP PO SCH (09:00)
[2023-08-30] MEDS: METOPROLOL SUCCINATE 25 MG TAB.SR.24H PO SCH (09:40)
[2023-08-30] MEDS: KCL 20 MEQ ERTAB PO PRN ×2 (09:40→13:34)
[2023-08-30] MEDS: ASPIRIN 81MG CHEW TAB PO SCH (09:41)
[2023-08-30] MEDS: CLOPIDOGREL 75MG TAB PO SCH (09:41)
[2023-08-30] MEDS: METOCLOPRAMIDE 5 MG TABLET PO SCH ×2 (09:49→13:33)
[2023-08-30 11:00] VITALS: BP 135/78; PULSE 107; RESP 18
[2023-08-30] MEDS ORDERED: LOSA-417 PO (12:03)
== END 2023-08-30 14:40 | disposition home or self-care (01) | DRG 233 ==
LOC: EDH 14:40 → OBSVTOIN 16:31 → EDHIP 16:31 → 2AH 08-20 00:54 → 2CV 08-24 11:46 → 2BH 08-25 05:06 → 2AH 08-27 05:33
PROVIDERS: ADMIT Internal Medicine Pulmonary Disease; ATTEND Internal Medicine Pulmonary Disease
PROC: 4A023N7 Measurement of Cardiac Sampling and Pressure, Left Heart, Percutaneous Approach (ICD-10-PCS; 2023-08-21)
PROC: B2111ZZ Fluoroscopy of Multiple Coronary Arteries using Low Osmolar Contrast (ICD-10-PCS; 2023-08-21)
PROC: B2151ZZ Fluoroscopy of Left Heart using Low Osmolar Contrast (ICD-10-PCS; 2023-08-21)
PROC: 06BQ4ZZ Excision of Left Saphenous Vein, Percutaneous Endoscopic Approach (ICD-10-PCS; 2023-08-24)
PROC: 0PH000Z Insertion of Rigid Plate Internal Fixation Device into Sternum, Open Approach (ICD-10-PCS; 2023-08-24)
PROC: 30233R1 Transfusion of Nonautologous Platelets into Peripheral Vein, Percutaneous Approach (ICD-10-PCS; 2023-08-24)
PROC: 30233N1 Transfusion of Nonautologous Red Blood Cells into Peripheral Vein, Percutaneous Approach (ICD-10-PCS; 2023-08-24)
PROC: 02100Z9 Bypass Coronary Artery, One Artery from Left Internal Mammary, Open Approach (ICD-10-PCS; principal; 2023-08-24 12:00)
PROC: 021209W Bypass Coronary Artery, Three Arteries from Aorta with Autologous Venous Tissue, Open Approach (ICD-10-PCS; 2023-08-24 12:00)
DX: I95.9 Hypotension, unspecified (principal); I21.A1 Myocardial infarction type 2; J98.11 Atelectasis; I31.9 Disease of pericardium, unspecified; J90 Pleural effusion, not elsewhere classified; I25.10 Atherosclerotic heart disease of native coronary artery without angina pectoris; R00.1 Bradycardia, unspecified; K52.9 Noninfective gastroenteritis and colitis, unspecified; J47.9 Bronchiectasis, uncomplicated; I10 Essential (primary) hypertension; E78.00 Pure hypercholesterolemia, unspecified; J98.4 Other disorders of lung; D64.9 Anemia, unspecified; E11.65 Type 2 diabetes mellitus with hyperglycemia; I25.2 Old myocardial infarction; Z79.02 Long term (current) use of antithrombotics/antiplatelets; Z79.899 Other long term (current) drug therapy; Z82.49 Family history of ischemic heart disease and other diseases of the circulatory system; Z86.16 Personal history of COVID-19; Z90.721 Acquired absence of ovaries, unilateral; Z95.1 Presence of aortocoronary bypass graft
CPT/HCPCS: 36415; 36430; 71045; 71270; 74018; 78452; 80048; 80053; 80061; 81003; 82270; 82330; 82435; 82550; 82607; 82728; 82746; 82803; 82947; 82948; 83036; 83540; 83550; 83605; 83735; 83874; 83880; 84100; 84132; 84145; 84295; 84439; 84443; 84484; 85018; 85025; 85027; 85347; 85378; 85610; 85730; 86850; 86900; 86901; 86923; 87641; 93005; 93017; 93306; 93458; 93880; 93970; 94002; 94003; 94010; 94150; 96374; 97039; 99156; 99157; A4357; A7048; A9500; C1760; C1894; G0378; J0171; J0282; J0360; J0461; J0583; J0690; J0696; J1644; J1650; J1815; J2001; J2250; J2405; J2440; J2704; J2720; J2785; J3010; J3475; J3480; J3490; J7030; J7040; J7120; P9016; P9034; P9045; Q9967; A4215; A4216; A4222; A4223; A4315; A4452; A4600; A4649; A4930; A6204; A6219; C1713; C1729; C1776; Q9965